=== PATIENT | female | born 1930 | race Caucasian/White ===

== ENCOUNTER 2016-06-24 14:48 | Inpatient (IN) | payer MEDICARE ==
[~2016-06-24] VITALS: Ht 157.5 cm; Wt 54.4 kg
[2016-06-24 16:00] VITALS: BP 154/75
[2016-06-24 18:33] VITALS: BP 154/75
--- NOTE | 2016-06-24 18:35 | NUR ---
ADMIT NOTE ADMITTED FROM [facility] VIA AMBULANCE. A/O FORGETFUL AT TIMES ABLE TO MAKE NEEDS KNOW./ TRIPPED AND FELL AT HOME NO FX. LEFT WRIST PAIN AND BRUISING MINIMAL SWELLING. SHE HAS REMOVABLE IMMOBILIZER /SPLINT TO LEFT HAND. BRUISING TO LEFT HIP. ALSO SOME FACIAL BRUISING AROUND LEFT EYE AND CHEEK. DAUGHTER AT BEDSIDE. HX TAKEN FROM DAUGHTER AND PATIENT.
[2016-06-24] MEDS ORDERED: FESO8TAB PO (18:40)
[2016-06-24] MEDS ORDERED: DABI150C PO (18:40)
[2016-06-24] MEDS ORDERED: LEVO25TA2 PO (18:40)
[2016-06-24] MEDS ORDERED: LIOT5TAB8 PO (18:40)
[2016-06-24] MEDS ORDERED: ATOR20TA PO (18:40)
[2016-06-24] MEDS ORDERED: FERR-58 PO (18:40)
[2016-06-24] MEDS ORDERED: DIGO125T20 PO (18:40)
[2016-06-24] MEDS ORDERED: HYOS0.1273 PO (18:40)
[2016-06-24] MEDS ORDERED: FENO145T20 PO (18:40)
[2016-06-24] MEDS ORDERED: AMIO100T4 PO (18:40)
[2016-06-24] MEDS ORDERED: TOPI-67 PO (18:40)
--- NOTE | 2016-06-24 20:00 | NUR ---
Patient sitting up in bed at this time. Alert and verbally responsive. Daughter, Ronny at bedside. Per Daughter, asked if patient received second dose of Pradaxa. Per patient she only received morning dose, but per daughter Ronny she did not want to take mothers word. Daughter Ronny does not want medication given until it is verified that second dose was not given. Called [facility] unit and Spoke with Annelise, Charge nurse and she was able to verify with me that last dose of Pradaxa that was given to the patient was today, 06/24/16 @ 8:53am. Called daughter Ronny and left a message. Awaiting call back to make daughter aware before giving medication.
[2016-06-24 20:21] VITALS: BP 172/73
[2016-06-24] MEDS: PATIENT MAY USE OWN MED- MD OK PO SCH (21:22)
--- NOTE | 2016-06-24 22:00 | NUR ---
Daughter Ronny called back and made aware that mother received only one dose of the medication Pradaxa, per charge nurse at [facility]. And said it was okay to give second dose. JENNIFER Cassidy made aware that it is okay to give medication.
[2016-06-24] MEDS ORDERED: ACETAMINOPHEN 325 MG TABLET ONE (22:32)
[2016-06-24] MEDS: ACETAMINOPHEN 325 MG TABLET PO PRN (22:34)
[2016-06-24 23:59] VITALS: BP 160/68
--- NOTE | 2016-06-25 05:44 | NUR ---
Patient alert and oriented and verbally able to let needs known. Slept well throughout the night, did complain of mild pain once, medication was administered with relief. Patient has call light within reach, all needs attended to, will continue to monitor.
[2016-06-25 06:28] LABS: BASOPHILS # (AUTO) 0.1 K/uL (0.0-8.0); BASOPHILS % (AUTO) 0.8 % (0.0-2.0); EOSINOPHILS # (AUTO) 0.2 K/uL (0.0-0.7); HEMATOCRIT 34.7 % (31.2-41.9); HEMOGLOBIN 11.9 g/dL (10.9-14.3); LYMPHOCYTES # (AUTO) 1.1 K/uL (20.0-40.0); LYMPHOCYTES % (AUTO) 14.4 % (20.5-51.5); MEAN CORPUSCULAR HEMOGLOBIN 28.7 uug (24.7-32.8); MEAN CORPUSCULAR HGB CONC 34 g/dL (32.3-35.6); MEAN CORPUSCULAR VOLUME 83.8 fL (75.5-95.3); MONOCYTES # (AUTO) 0.6 K/uL (2.0-10.0); MONOCYTES % (AUTO) 8.2 % (0.0-11.0); NEUTROPHILS # (AUTO) 5.5 K/uL (1.8-8.9); NEUTROPHILS % (AUTO) 73.6 % (38.5-71.5); PLATELET COUNT (AUTO) 237 K/uL (179-408); RED BLOOD CELL COUNT(AUTO) 4.14 MIL/uL (3.63-4.92); RED CELL DISTRIBUTION WIDTH 14.5 % (12.3-17.7); WHITE BLOOD COUNT (AUTO) 7.5 K/uL (3.8-11.8)
[2016-06-25 06:37] LABS: CALCIUM 7.9 mg/dL (8.5-10.1); CREATININE 0.9 mg/dL (0.6-1.3); POTASSIUM 3.7 mmol/L (3.5-5.1)
[2016-06-25] MEDS: LEVOTHYROXINE SODIUM 25 MCG TABLET PO SCH (07:13)
[2016-06-25] MEDS: LIOTHYRONINE SODIUM 5 MCG TABLET PO SCH ×2 (07:13→09:29)
[2016-06-25 08:00] VITALS: BP 164/71
[2016-06-25] MEDS ORDERED: DABIGATRAN ETEXILATE MESYLATE 150 MG CAPSULE PO SCH (09:00)
[2016-06-25] MEDS: TOPIRAMATE 25 MG TABLET PO SCH (09:29)
[2016-06-25] MEDS: HYOSCYAMINE SULFATE 0.125 MG TABLET PO SCH ×3 (09:29→17:32)
[2016-06-25] MEDS: FENOFIBRATE NANOCRYSTALLIZED 145 MG TABLET PO SCH (09:29)
[2016-06-25] MEDS: AMIODARONE HCL 200 MG TABLET PO SCH (09:30)
[2016-06-25] MEDS: ATORVASTATIN 20 MG TABLET PO SCH (09:31)
[2016-06-25] MEDS: FERROUS SULFATE 325 MG TABEC PO SCH (09:31)
[2016-06-25] MEDS: PATIENT MAY USE OWN MED- MD OK PO SCH ×2 (09:51→20:47)
[2016-06-25] MEDS: DIGOXIN 125 MCG TABLET PO SCH (13:31)
--- NOTE | 2016-06-25 18:47 | NUR ---
RECEIVED PT AT 0700. A/O X4. LT HAND AND WRIST WITH SWELLING AND BRUISING WITH SMALL LACERATION WITH 1 LAST STERI STRIP INTACT. WORE BRACE LT WRIST FOR BRIEF PERIOD ONLY FOR COMFORT, DESIRES BRACE OFF FOR ACTIVITIES IT IMPEDES ABILITY TO MOVE. WELL MOTIVATED TO PARTICIPATE IN REHAB PROCESS, PARTICIPATING IN ALL THERAPIES. NO C/O PAIN THROUGHOUT SHIFT. PT ALSO HAS BRUISING AT LEFT EVANGELICAL AREA AND LEFT EYE FROM HITTING HEAD AT TIME OF FALL. NO DISTRESS. NOW RESTING IN BED. HAD BLADDER ACCIDENT KX2 AND STOOL ACCIDENT TODAY IN DIAPER X1.
[2016-06-25 20:12] VITALS: BP 133/60
[2016-06-25] MEDS: ACETAMINOPHEN 325 MG TABLET PO PRN (20:52)
[2016-06-26 03:52] VITALS: BP 167/71
[2016-06-26 04:28] VITALS: BP 167/71
[2016-06-26] MEDS: LEVOTHYROXINE SODIUM 25 MCG TABLET PO SCH (06:27)
--- NOTE | 2016-06-26 06:58 | NUR ---
Patient is alert and oriented, verbally able to let needs known. Slept well throughout the night. C/O mild pain x1 and medication was administered with relief. Patient has call light within reach, all needs attended to.
[2016-06-26 08:00] VITALS: BP 167/76
[2016-06-26] MEDS: HYOSCYAMINE SULFATE 0.125 MG TABLET PO SCH ×3 (09:08→16:46)
[2016-06-26] MEDS: FERROUS SULFATE 325 MG TABEC PO SCH (09:08)
[2016-06-26] MEDS: FENOFIBRATE NANOCRYSTALLIZED 145 MG TABLET PO SCH (09:08)
[2016-06-26] MEDS: LIOTHYRONINE SODIUM 5 MCG TABLET PO SCH (09:08)
[2016-06-26] MEDS: TOPIRAMATE 25 MG TABLET PO SCH (09:09)
[2016-06-26] MEDS: AMIODARONE HCL 200 MG TABLET PO SCH (09:09)
[2016-06-26] MEDS: ATORVASTATIN 20 MG TABLET PO SCH (09:09)
[2016-06-26] MEDS: PATIENT MAY USE OWN MED- MD OK PO SCH ×2 (09:10→20:53)
[2016-06-26] MEDS: DIGOXIN 125 MCG TABLET PO SCH (13:02)
[2016-06-26] MEDS: ACETAMINOPHEN 325 MG TABLET PO PRN (20:54)
[2016-06-27] MEDS: LEVOTHYROXINE SODIUM 25 MCG TABLET PO SCH (06:17)
--- NOTE | 2016-06-27 06:19 | NUR ---
Patient is alert and oriented and verbally able to let needs known. Slept well through out the night had no episodes of SOB or distress, Patient has call light within reach all needs attended to
[2016-06-27 08:10] VITALS: BP 157/69
[2016-06-27] MEDS: FENOFIBRATE NANOCRYSTALLIZED 145 MG TABLET PO SCH (08:53)
[2016-06-27] MEDS: PATIENT MAY USE OWN MED- MD OK PO SCH ×2 (08:53→20:53)
[2016-06-27] MEDS: LISINOPRIL 10 MG TABLET PO SCH (08:54)
[2016-06-27] MEDS: ATORVASTATIN 20 MG TABLET PO SCH (08:54)
[2016-06-27] MEDS: LIOTHYRONINE SODIUM 5 MCG TABLET PO SCH (08:54)
[2016-06-27] MEDS: TOPIRAMATE 25 MG TABLET PO SCH (08:54)
[2016-06-27] MEDS: HYOSCYAMINE SULFATE 0.125 MG TABLET PO SCH ×3 (08:54→17:43)
[2016-06-27] MEDS: FERROUS SULFATE 325 MG TABEC PO SCH (08:54)
[2016-06-27] MEDS: AMIODARONE HCL 200 MG TABLET PO SCH (08:55)
[2016-06-27] MEDS: DIGOXIN 125 MCG TABLET PO SCH (13:47)
--- NOTE | 2016-06-27 18:41 | NUR ---
received pt at 0700. a/o x4. incontinent of bowel and bladder on occasion. wears brief. no c/o dizziness, lightheadedness throughout shift. well motivated and participates well in rehab process. denies pain. no distress throughout shift.
--- NOTE | 2016-06-27 19:15 | NUR ---
Received report from JENNIFER Mccray. Received patient sitting up in bed. Alert and verbally responsive. Able to make needs known. Daughter sitting at bedside. No c/o pain and discomfort at this time. No acute distress. No SOB. Patient on room air. Kept clean and dry. All needs attended to promptly. Call light within' reach. Will continue to monitor.
[2016-06-27] MEDS: ACETAMINOPHEN 325 MG TABLET PO PRN (21:42)
[2016-06-27 22:00] VITALS: BP 130/65
--- NOTE | 2016-06-28 06:00 | NUR ---
Patient remains asleep. Slept comfortably throughout the night. No acute distress. All needs attended to promptlyl. Call light within reach. Will continue to monitor.
[2016-06-28] MEDS: LEVOTHYROXINE SODIUM 25 MCG TABLET PO SCH (06:45)
[2016-06-28 08:10] VITALS: BP 164/75
[2016-06-28] MEDS: TOPIRAMATE 25 MG TABLET PO SCH (08:42)
[2016-06-28] MEDS: LIOTHYRONINE SODIUM 5 MCG TABLET PO SCH (08:42)
[2016-06-28] MEDS: FERROUS SULFATE 325 MG TABEC PO SCH (08:42)
[2016-06-28] MEDS: ATORVASTATIN 20 MG TABLET PO SCH (08:42)
[2016-06-28] MEDS: AMIODARONE HCL 200 MG TABLET PO SCH (08:42)
[2016-06-28] MEDS: LISINOPRIL 10 MG TABLET PO SCH (08:42)
[2016-06-28] MEDS: FENOFIBRATE NANOCRYSTALLIZED 145 MG TABLET PO SCH (08:42)
[2016-06-28] MEDS: HYOSCYAMINE SULFATE 0.125 MG TABLET PO SCH ×3 (08:43→17:24)
[2016-06-28] MEDS: TOVIAZ ER PO SCH (08:43)
[2016-06-28] MEDS: PATIENT MAY USE OWN MED- MD OK PO SCH ×2 (08:43→21:34)
--- NOTE | 2016-06-28 09:00 | NUR ---
Notified Dr otoole of elevated bp of sbp above 160's. New order received and carried out. Pt oob in chair with sba using single point cane. Call light is with reach. Discussed plan of care re: fall precaution and proper pain management. Pt is in no acute distress.
[2016-06-28 10:00] VITALS: BP 138/66
[2016-06-28] MEDS: DIGOXIN 125 MCG TABLET PO SCH (13:19)
[2016-06-28 14:40] VITALS: BP 119/54
[2016-06-28] MEDS ORDERED: LISINOPRIL 10 MG TABLET PO ONE (17:15)
--- NOTE | 2016-06-28 18:00 | NUR ---
Pt is in no acute distress. Call light is within reach. Plan of care effective.
[2016-06-28] MEDS: ACETAMINOPHEN 325 MG TABLET PO PRN (21:28)
[2016-06-28 21:30] VITALS: BP 156/73
--- NOTE | 2016-06-28 22:00 | NUR ---
Pt assisted with getting ready for bed, diaper changed, pt resting, pt had PRN tylenol x1 for headache. otherwise pt denied pain anywhere else. no SOB or respiratory distress. pt has call light and bed in low position. Will continue to monitor.
--- NOTE | 2016-06-29 00:50 | NUR ---
Pt refused help to reposition, after being changed, telegraphic typewriter mechanic offered to help position her on side so she wasn't laying on her back, however, pt stated " how I am is how I'm staying.
[2016-06-29] MEDS: LEVOTHYROXINE SODIUM 25 MCG TABLET PO SCH (06:13)
--- NOTE | 2016-06-29 07:43 | NUR ---
Awake, alert, pleasant, on moderate high back rest.
[2016-06-29 08:00] VITALS: BP 123/53
[2016-06-29] MEDS ORDERED: LISINOPRIL 20 MG TABLET PO SCH ×2 (09:00→21:45)
[2016-06-29] MEDS ORDERED: LISINOPRIL 10 MG TABLET PO SCH (09:00)
[2016-06-29] MEDS: LIOTHYRONINE SODIUM 5 MCG TABLET PO SCH (09:03)
[2016-06-29] MEDS: AMIODARONE HCL 200 MG TABLET PO SCH (09:03)
[2016-06-29] MEDS: FERROUS SULFATE 325 MG TABEC PO SCH (09:03)
[2016-06-29] MEDS: HYOSCYAMINE SULFATE 0.125 MG TABLET PO SCH ×3 (09:04→17:24)
[2016-06-29] MEDS: ATORVASTATIN 20 MG TABLET PO SCH (09:04)
[2016-06-29] MEDS: TOVIAZ ER PO SCH (09:05)
[2016-06-29] MEDS: PATIENT MAY USE OWN MED- MD OK PO SCH ×2 (09:05→21:05)
[2016-06-29] MEDS: TOPIRAMATE 25 MG TABLET PO SCH (09:06)
[2016-06-29] MEDS: FENOFIBRATE NANOCRYSTALLIZED 145 MG TABLET PO SCH (09:06)
[2016-06-29] MEDS: DIGOXIN 125 MCG TABLET PO SCH (13:11)
[2016-06-29 16:42] VITALS: BP 139/70
--- NOTE | 2016-06-29 18:08 | NUR ---
Ate fairly. Assisted with changing to hospital gown then laying on bed, comfortably
[2016-06-29 19:30] VITALS: BP 164/65
--- NOTE | 2016-06-29 19:30 | NUR ---
RECEIVED PATIENT QUIETLY RESTING IN BED WITHOUT C/O PAIN OR DIZZINESS. APPEARS IN NAD. ASSISTED OOB TO BED TO BATHROOM TO PERFORM PM CARE, WITH BRUSHING TEETH AND WASHING FACE. USES CANE TO AMBULATE WITH STANDBY ASSIST AND AT TIMES CONTACT GUARD WITH UNSTEADINESS IN HER GAIT.. DOES NOT C/O DIZZINESS WITH AMBULATION HOWEVER. BRUISING ON LEFT TEMPORAL AREA IS HEALING AND EASING IN COLOR. NO VISUAL OR AUDITORY DEFICIT COMPLAINTS OFFERED. DOES HAVE PERIODS OF INCONTINENCE AND WEARS DIAPERS FOR THAT. KEPT CLEAN AND DRY WITH ANA CARE DONE WITH EACH INCONTINENCE. CALL LIGHT WITHIN REACH AAT AND BED ALARM ON. ROUNDING DONE Q 1 HR AND PRN. INSTRUCTED PATIENT TO NOT GET OOB WITHOUT CALING FIRST. PATIENT VERBALLY AGREES.
[2016-06-29] MEDS: ACETAMINOPHEN 325 MG TABLET PO PRN (20:59)
--- NOTE | 2016-06-29 21:35 | NUR ---
PATIENT WITHOUT C/O PAIN OR HEADACHE. HYPERTENSIVE. DR. NOEL ORTEGA NOTIFIED OF HTN WITH ORDERS RECEIVED. EXTRA DOSE OF PRINIVIL 20 MG PO GIVEN TONIGHT. WILL START ON 40 MG PO DAILY IN AM
[2016-06-30] MEDS: LEVOTHYROXINE SODIUM 25 MCG TABLET PO SCH (06:29)
--- NOTE | 2016-06-30 09:00 | NUR ---
Let pt sleep in till 900. Pt oob in chair with min A from bed to chair with needs of verbal cues for safety. Pt denies any c/o pain. Discussed plan of care Re: fall precaution, pain management, and encourage independence as much as possible -pt agreeable with plan of care. Call light is with reach.
[2016-06-30] MEDS: ATORVASTATIN 20 MG TABLET PO SCH (09:19)
[2016-06-30] MEDS: AMIODARONE HCL 200 MG TABLET PO SCH (09:19)
[2016-06-30] MEDS: FENOFIBRATE NANOCRYSTALLIZED 145 MG TABLET PO SCH (09:20)
[2016-06-30] MEDS: FERROUS SULFATE 325 MG TABEC PO SCH (09:20)
[2016-06-30] MEDS: TOVIAZ ER PO SCH (09:20)
[2016-06-30] MEDS: LIOTHYRONINE SODIUM 5 MCG TABLET PO SCH (09:20)
[2016-06-30] MEDS: TOPIRAMATE 25 MG TABLET PO SCH (09:20)
[2016-06-30] MEDS: HYOSCYAMINE SULFATE 0.125 MG TABLET PO SCH ×3 (09:20→17:28)
[2016-06-30] MEDS: PATIENT MAY USE OWN MED- MD OK PO SCH ×2 (09:21→20:43)
[2016-06-30] MEDS: LISINOPRIL 20 MG TABLET PO SCH (09:27)
[2016-06-30] MEDS: DIGOXIN 125 MCG TABLET PO SCH (12:27)
--- NOTE | 2016-06-30 13:30 | NUR ---
Pt wanted to go for a walk. Ambulated pt from her room 106 up to end of [facility] with Contact Guard Assist using single point cane and good balanced gait. Put pt back to her chair after ambulation. Call light is within reach.
--- NOTE | 2016-06-30 18:00 | NUR ---
Pt is in no acute distress. Call light is within reach.
--- NOTE | 2016-06-30 19:30 | NUR ---
RECEIVED PATIENT SITTING UP IN CHAIR IN HER OWN CLOTHES. ASSISTED WITH PM CARE. ABLE TO TAKE HER CLOTHES OFF BUT NEEDED MINIMAL ASSISTANCE IN PUTTING ON HOSPITAL GOWN. TEETH BRUSHED INDEPENDENTLY.ASSISTED BACK TO BED WITH CANE AND CONTACT GUARD ASSIST. INSTRUCTED TO CALL WHEN DIAPER IS WET AND WILL ALSO BE CHECKING DIAPER Q 1 HR TO 2 HRS TO KEEP CLEAN AND DRY. ANA CARE DONE, SKIN IS PINKISH RED, WITHOUT SKIN BREAKDOWN. Z GUARD ORDERED AND APPLIED. CALL LIGHT AND BED ALARM ON AAT
[2016-06-30 20:00] VITALS: BP 110/55
[2016-06-30] MEDS ORDERED: Z GUARD REMEDY PASTE 57 GM TUBE TOP PRN (20:15)
[2016-06-30] MEDS: ACETAMINOPHEN 325 MG TABLET PO PRN (20:43)
[2016-07-01] MEDS: LEVOTHYROXINE SODIUM 25 MCG TABLET PO SCH (06:25)
[2016-07-01 06:30] LABS: BASOPHILS % (AUTO) 0.6 % (0.0-2.0); EOSINOPHILS # (AUTO) 0.3 K/uL (0.0-0.7); EOSINOPHILS % (AUTO) 6.1 % (0.0-7.0); HEMATOCRIT 34.8 % (31.2-41.9); HEMOGLOBIN 11.5 g/dL (10.9-14.3); LYMPHOCYTES # (AUTO) 1.5 K/uL (20.0-40.0); LYMPHOCYTES % (AUTO) 28.1 % (20.5-51.5); MEAN CORPUSCULAR HEMOGLOBIN 27.7 uug (24.7-32.8); MEAN CORPUSCULAR HGB CONC 33 g/dL (32.3-35.6); MEAN CORPUSCULAR VOLUME 83.5 fL (75.5-95.3); MONOCYTES # (AUTO) 0.6 K/uL (2.0-10.0); MONOCYTES % (AUTO) 11.8 % (0.0-11.0); NEUTROPHILS # (AUTO) 2.9 K/uL (1.8-8.9); NEUTROPHILS % (AUTO) 53.4 % (38.5-71.5); PLATELET COUNT (AUTO) 300 K/uL (179-408); RED BLOOD CELL COUNT(AUTO) 4.16 MIL/uL (3.63-4.92); RED CELL DISTRIBUTION WIDTH 14.5 % (12.3-17.7); WHITE BLOOD COUNT (AUTO) 5.3 K/uL (3.8-11.8)
--- NOTE | 2016-07-01 06:30 | NUR ---
SLEPT FAIRLY WELL. INCONTINENT IN DIAPERS. ANA AREA IS REDDENED. Z GUARD ORDERED AND APPLIED.ENCOURAGED PATIENT TO CALL NURSE WHEN SHE FEELS WET AND NEEDS TO BE CHANGED. TURNING SIDE TO SIDE TO PREVENT SKIN BREAKDOWN. CALL LIGHT IN REACH. BED ALARM ON
--- NOTE | 2016-07-01 07:13 | NUR ---
Patient received from restaurant shift leader, sleeping comfortably in bed, no signs of acute distress noted. Respirations even and unlabored. Environmental check for safety done, safety precautions maintained. Bed in low position, bed alarm on, call light within reach.
[2016-07-01 07:30] LABS: THYROID STIMULATING HORMONE 1.539 mIU/mL (0.358-3.740)
[2016-07-01 07:42] LABS: ALBUMIN 2.6 g/dL (3.4-5.0); BILIRUBIN,TOTAL 0.7 mg/dL (0.2-1.0); CALCIUM 8.7 mg/dL (8.5-10.1); CREATININE 1.1 mg/dL (0.6-1.3); MAGNESIUM 2.1 mg/dL (1.8-2.4); PHOSPHOROUS 3.2 mg/dL (2.5-4.9); POTASSIUM 4.2 mmol/L (3.5-5.1); TOTAL PROTEIN, SERUM 6.2 g/dL (6.4-8.2)
[2016-07-01 08:12] VITALS: BP 156/69
[2016-07-01] MEDS: AMIODARONE HCL 200 MG TABLET PO SCH (08:45)
[2016-07-01] MEDS: TOPIRAMATE 25 MG TABLET PO SCH (08:45)
[2016-07-01] MEDS: HYOSCYAMINE SULFATE 0.125 MG TABLET PO SCH ×3 (08:45→17:07)
[2016-07-01] MEDS: FENOFIBRATE NANOCRYSTALLIZED 145 MG TABLET PO SCH (08:46)
[2016-07-01] MEDS: LIOTHYRONINE SODIUM 5 MCG TABLET PO SCH (08:47)
[2016-07-01] MEDS: LISINOPRIL 20 MG TABLET PO SCH (08:47)
[2016-07-01] MEDS: FERROUS SULFATE 325 MG TABEC PO SCH (08:47)
[2016-07-01] MEDS: ATORVASTATIN 20 MG TABLET PO SCH (08:47)
[2016-07-01] MEDS: PATIENT MAY USE OWN MED- MD OK PO SCH ×2 (08:50→20:18)
[2016-07-01] MEDS: TOVIAZ ER PO SCH (08:50)
[2016-07-01] MEDS: AMLODIPINE 5 MG TABLET PO SCH (12:25)
[2016-07-01] MEDS: DIGOXIN 125 MCG TABLET PO SCH (12:26)
--- NOTE | 2016-07-01 15:00 | NUR ---
IDT MEETING 07/01/16
[2016-07-01 15:53] VITALS: BP 105/57
[2016-07-01] MEDS: ACETAMINOPHEN 325 MG TABLET PO PRN (20:18)
[2016-07-01 20:24] VITALS: BP 127/55
--- NOTE | 2016-07-02 05:16 | NUR ---
Patient slept well through out the night, had no c/o pain or discomfort, no signs of SOB or respiratory distress. Patient is able to let needs known. Call light is within reach, all needs attended to.
[2016-07-02] MEDS: LEVOTHYROXINE SODIUM 25 MCG TABLET PO SCH (06:19)
[2016-07-02 08:32] VITALS: BP 155/70
[2016-07-02] MEDS: LIOTHYRONINE SODIUM 5 MCG TABLET PO SCH (08:58)
[2016-07-02] MEDS: AMIODARONE HCL 200 MG TABLET PO SCH (08:58)
[2016-07-02] MEDS: HYOSCYAMINE SULFATE 0.125 MG TABLET PO SCH ×3 (08:59→17:58)
[2016-07-02] MEDS: TOPIRAMATE 25 MG TABLET PO SCH (09:00)
[2016-07-02] MEDS: ATORVASTATIN 20 MG TABLET PO SCH (09:00)
[2016-07-02] MEDS: AMLODIPINE 5 MG TABLET PO SCH (09:00)
[2016-07-02] MEDS: LISINOPRIL 20 MG TABLET PO SCH ×2 (09:01→20:38)
[2016-07-02] MEDS: FERROUS SULFATE 325 MG TABEC PO SCH (09:01)
[2016-07-02] MEDS: PATIENT MAY USE OWN MED- MD OK PO SCH ×2 (09:03→20:37)
[2016-07-02] MEDS: TOVIAZ ER PO SCH (09:03)
[2016-07-02] MEDS: DIGOXIN 125 MCG TABLET PO SCH (14:22)
[2016-07-02] MEDS: ACETAMINOPHEN 325 MG TABLET PO PRN (20:37)
[2016-07-02 20:41] VITALS: BP 115/54
--- NOTE | 2016-07-03 05:09 | NUR ---
Patient slept well throughout the night, c/o pain x1, pain medication was administered with relief. Patient is incontinent, maintained clean and dry. Call light within reach.
[2016-07-03] MEDS: LEVOTHYROXINE SODIUM 25 MCG TABLET PO SCH (06:35)
[2016-07-03 07:50] VITALS: BP 156/57
[2016-07-03] MEDS: AMLODIPINE 5 MG TABLET PO SCH (09:00)
[2016-07-03] MEDS: AMIODARONE HCL 200 MG TABLET PO SCH (10:23)
[2016-07-03] MEDS: HYOSCYAMINE SULFATE 0.125 MG TABLET PO SCH ×3 (10:23→17:00)
[2016-07-03] MEDS: FERROUS SULFATE 325 MG TABEC PO SCH (10:24)
[2016-07-03] MEDS: LIOTHYRONINE SODIUM 5 MCG TABLET PO SCH (10:24)
[2016-07-03] MEDS: ATORVASTATIN 20 MG TABLET PO SCH (10:24)
[2016-07-03] MEDS: LISINOPRIL 20 MG TABLET PO SCH ×2 (10:24→21:31)
[2016-07-03] MEDS: TOPIRAMATE 25 MG TABLET PO SCH (10:24)
[2016-07-03] MEDS: TOVIAZ ER PO SCH (10:25)
[2016-07-03] MEDS: PATIENT MAY USE OWN MED- MD OK PO SCH ×2 (10:25→21:31)
[2016-07-03] MEDS: DIGOXIN 125 MCG TABLET PO SCH (14:39)
--- NOTE | 2016-07-03 16:19 | NUR ---
Packaging [employer] Distributor SW called the patient's daughter Ronny Zaidi to discuss safety concerns regarding the patient driving. SATISH left Ronny a voicemail and is awaiting call back.
[2016-07-03 20:00] VITALS: BP 136/71
[2016-07-03] MEDS: ACETAMINOPHEN 325 MG TABLET PO PRN (21:31)
[2016-07-04] MEDS: LEVOTHYROXINE SODIUM 25 MCG TABLET PO SCH (06:48)
[2016-07-04 08:00] VITALS: BP 152/66
--- NOTE | 2016-07-04 08:00 | NUR ---
Awake, alert, sitting at edge of the bed. DC plan discussed
[2016-07-04] MEDS: AMIODARONE HCL 200 MG TABLET PO SCH (09:03)
[2016-07-04] MEDS: FERROUS SULFATE 325 MG TABEC PO SCH (09:03)
[2016-07-04] MEDS: LIOTHYRONINE SODIUM 5 MCG TABLET PO SCH (09:03)
[2016-07-04] MEDS: ATORVASTATIN 20 MG TABLET PO SCH (09:04)
[2016-07-04] MEDS: HYOSCYAMINE SULFATE 0.125 MG TABLET PO SCH (09:04)
[2016-07-04] MEDS: PATIENT MAY USE OWN MED- MD OK PO SCH (09:05)
[2016-07-04] MEDS: TOVIAZ ER PO SCH (09:05)
[2016-07-04] MEDS: AMLODIPINE 5 MG TABLET PO SCH (09:05)
[2016-07-04 09:06] VITALS: BP 152/66
[2016-07-04] MEDS: TOPIRAMATE 25 MG TABLET PO SCH (09:06)
[2016-07-04] MEDS: LISINOPRIL 20 MG TABLET PO SCH (09:06)
--- NOTE | 2016-07-04 11:45 | NUR ---
With discharge order to home with home health arranged. Prescription and DC instruction given to patient and daughter, verbalized understanding. DME wheelchair and FWW, given to patient. Went home per wheelchair in fair condition, not in distress, afebrile.
== END 2016-07-04 11:45 | disposition home health service (06) | DRG 293 ==
LOC: SA1 19:08
PROVIDERS: ADMIT Physical Medicine & Rehabilitation Pain Medicine; ATTEND Physical Medicine & Rehabilitation Pain Medicine
DX: I11.0 Hypertensive heart disease with heart failure (principal); I50.23 Acute on chronic systolic (congestive) heart failure; N18.9 Chronic kidney disease, unspecified; G90.01 Carotid sinus syncope; S00.83XD Contusion of other part of head, subsequent encounter; S62.112D Displaced fracture of triquetrum [cuneiform] bone, left wrist, subsequent encounter for fracture with routine healing; S63.502D Unspecified sprain of left wrist, subsequent encounter; W19.XXXD Unspecified fall, subsequent encounter; Z95.0 Presence of cardiac pacemaker; I70.90 Unspecified atherosclerosis; R53.1 Weakness; R26.89 Other abnormalities of gait and mobility; E78.5 Hyperlipidemia, unspecified; E03.9 Hypothyroidism, unspecified; N32.81 Overactive bladder; H91.10 Presbycusis, unspecified ear; Z86.718 Personal history of other venous thrombosis and embolism; Z88.0 Allergy status to penicillin; Z88.2 Allergy status to sulfonamides; K21.9 Gastro-esophageal reflux disease without esophagitis; Z87.11 Personal history of peptic ulcer disease; Z91.81 History of falling; I48.91 Unspecified atrial fibrillation
CPT/HCPCS: 36415; 82306; 83735; 84100; 84443; 85025; 92506; 97001; 97003; 97110; 97112; 97116; 97530; 97535